=== PATIENT | male | born 1960 | race Caucasian/White ===

== ENCOUNTER 2021-06-02 03:15 | Emergency (ER) | payer OTHER ==
[2021-06-02 04:23] LABS: CORONAVIRUS 2019 SARS-COV-2 NEGATIVE (NEGATIVE); INFLUENZA A NAA NEGATIVE (NEGATIVE)
[2021-06-02 04:28] LABS: BASOPHIL 0.6 % (0-2); EOSINOPHIL 0.2 % (0-5); HCT 47.7 % (42.0-52.0); HGB 15.7 g/dl (13.2-18.0); LYMPHOCYTE 4.9 % (15-48); MCH 28.4 pg (25.0-31.0); MCHC 32.9 g/dL (32.0-36.0); MCV 86.3 fL (78.0-100.0); MONOCYTE 7.4 % (0-12); MPV 10.5 fL (6.0-9.5); NEUTROPHIL 86.5 % (41-80); NRBC 0; PLT 209 K/uL (150-400); RBC 5.53 M/uL (4.70-6.00); RDW 12.7 % (11.5-14.0); WBC 8.9 K/uL (4.0-10.5)
[2021-06-02 05:06] LABS: BUN/CREAT RATIO (CALC) 12.8 RATIO; CREATININE 0.94 mg/dL (0.67-1.17); POTASSIUM 3.7 mmol/L (3.5-5.1)
[2021-06-02 07:15] LABS: BILIRUBIN NEGATIVE (NEGATIVE); BLOOD TRACE-INTACT Ery/uL (NEGATIVE); CLARITY CLEAR (CLEAR); COLOR YELLOW (YELLOW); GLUCOSE (U) NORMAL (NORMAL); LEUKOCYTES NEGATIVE Leu/uL (NEGATIVE); NITRITE NEGATIVE (NEGATIVE); PROTEIN NEGATIVE (NEGATIVE); SPECIFIC GRAVITY 1.025 (1.001-1.030)
[2021-06-02 07:22] LABS: ALBUMIN 2.8 g/dL (3.4-5.0); BILIRUBIN - DIRECT 0.2 mg/dL (0.00-0.20); GLOBULIN (CALCULATION) 2.5 g/dL; TOTAL PROTEIN 5.3 g/dL (6.4-8.2)
[2021-06-02 07:33] LABS: SQUAMOUS EPITHELIAL CELLS RARE; URINARY RBC RARE; URINARY WBC RARE
[2021-06-02] MEDS ORDERED: KETOROLAC TROME10 MG PO (07:45)
[2021-06-02] MEDS ORDERED: PHENERGAN12.5 M1 PO (07:45)
== END 2021-06-02 07:58 | disposition home or self-care (01) ==
LOC: FER 03:15
PROVIDERS: Emergency Medicine Emergency Medical Services
DX: B34.9 Viral infection, unspecified (principal); I10 Essential (primary) hypertension; Z20.822 Contact with and (suspected) exposure to COVID-19; Z79.899 Other long term (current) drug therapy
CPT/HCPCS: 36415; 36600; 71045; 80048; 80076; 81001; 82803; 83690; 84450; 84460; 84484; 85025; 93005; J1885; J2405; J7030; U0002